=== PATIENT | male | born 1950 | race Caucasian/White ===

== ENCOUNTER 2021-01-04 13:02 | Inpatient (IN) ==
[2021-01-04] MEDS ORDERED: Orphenadrine 60 MG/2 ML VIAL IM ONE (14:09)
[2021-01-04] MEDS ORDERED: Ketorolac 60 MG/2 ML VIAL IM ONE (14:10)
[2021-01-04] MEDS ORDERED: dexAMETHasone 4 MG TABLET PO ONE (14:15)
[2021-01-04] MEDS ORDERED: Ondansetron 4 MG/2 ML VIAL IVP PRN (16:35)
[2021-01-04] MEDS ORDERED: Melatonin 3 MG TABLET PO PRN (16:35)
[2021-01-04] MEDS ORDERED: *HR* HYDROcodone/Acet 5/325 mg TABLET PO PRN (16:35)
[2021-01-04] MEDS ORDERED: Naloxone 0.4 MG/ML INJ IVP PRN (16:35)
[2021-01-04] MEDS ORDERED: Acetaminophen 325 MG TABLET PO PRN (16:35)
[2021-01-04] MEDS ORDERED: *HR* OxyCODONE Immed Rel 5 MG TABLET PO PRN (16:35)
[2021-01-04] MEDS ORDERED: Finasteride 5 MG TABLET PO SCH (23:00)
[2021-01-05 05:51] LABS: Basophils % 0.1 %; Hematocrit 42.1 % (37.5-50.1); Hemoglobin 14.5 g/dL (12.9-16.9); Immature Granulocytes % 0.4 % (0-4); Lymphocytes % 9.5 %; Mean Corpuscular HGB Conc 34.4 g/dL (31.6-35.5); Mean Platelet Volume 9.6 fL (9.4-12.4); Monocytes # 0.4 K/mcL (0.0-1.3); Monocytes % 3.9 %; Neutrophils # 8.9 K/mcL (1.6-8.9); Platelet Count 231 K/mcL (140-400); Red Blood Count 4.68 M/mcL (4.19-5.50); Red Cell Distribution Width 12.5 % (11.5-14.5); Segmented Neutrophils % 86.1 %; White Blood Count 10.3 K/mcL (4.3-11.1)
[2021-01-05 05:58] LABS: INR 1.2; Prothrombin Time 13.3 Seconds (9.4-12.1)
[2021-01-05 06:11] LABS: BUN/Creatinine Ratio 27 (6-26); Blood Urea Nitrogen 32 mg/dL (8-23); Calcium 9.1 mg/dL (8.6-10.3); Carbon Dioxide 24 mEq/L (23-29); Chloride 109 mEq/L (98-107); Glucose 157 mg/dL (70-105); Osmolality,Calculated 302 (280-300); Potassium 4.3 mEq/L (3.5-5.1); Sodium 141 mEq/L (136-145); eGFR For African Americans > 60 (> 60); eGFR For Non-African Americans 60 (> 60)
[2021-01-05 06:26] VITALS: BP 157/83
== END 2021-01-05 12:55 | disposition home or self-care (01) | DRG 552 ==
LOC: 3NENU 13:02 → EMEROOARM 13:02 → 3NENU 17:54 → SUATTDRO 18:42
PROVIDERS: ADMIT Internal Medicine; ATTEND Family Medicine